=== PATIENT | male | born 1975 | race Caucasian/White ===

== ENCOUNTER 2020-02-29 12:40 | Emergency (ER) | payer OTHER ==
[~2020-02-29] VITALS: Ht 182.9 cm; Wt 106.8 kg
[2020-02-29] MEDS ORDERED: TYLENOL 325MG325 MG PO ×3 (14:01→15:37)
[2020-02-29] MEDS ORDERED: MOTRIN 400400 MG/TAB PO ×3 (14:01→15:37)
[2020-02-29 14:20] VITALS: BP 158/89; PULSE 78; TEMP 97.5
[2020-02-29] MEDS ORDERED: CRUTCHES MC ×2 (14:25→15:37)
== END 2020-02-29 14:55 | disposition home or self-care (01) ==
LOC: COL.ER 12:40
DX: S92.351A Displaced fracture of fifth metatarsal bone, right foot, initial encounter for closed fracture (principal); X50.1XXA Overexertion from prolonged static or awkward postures, initial encounter; Y92.39 Other specified sports and athletic area as the place of occurrence of the external cause

== ENCOUNTER → 2020-04-02 | Outpatient (CLI) | payer OTHER ==
[~2020-04-02] MED LIST: CRUTCHES MC; MOTRIN 400400 MG/TAB PO; TYLENOL 325MG325 MG PO
== END ==
LOC: MHCPAIN 08:35
DX: M48.12 Ankylosing hyperostosis [Forestier], cervical region (principal); M54.2 Cervicalgia; M25.511 Pain in right shoulder; M79.2 Neuralgia and neuritis, unspecified
CPT/HCPCS: G0463

== ENCOUNTER → 2020-04-04 | Outpatient (CLI) | payer OTHER | LOC: MHCPAIN 08:48 | DX: M47.812 Spondylosis without myelopathy or radiculopathy, cervical region (principal); M54.2 Cervicalgia ==

== ENCOUNTER → 2020-04-10 | Outpatient (CLI) | payer OTHER | LOC: MHCPAIN 07:58 | DX: M47.812 Spondylosis without myelopathy or radiculopathy, cervical region (principal); M54.2 Cervicalgia; M25.511 Pain in right shoulder; R51.9 Headache, unspecified; G89.29 Other chronic pain | CPT/HCPCS: G0463 ==

== ENCOUNTER → 2020-04-11 | Outpatient (CLI) | payer OTHER | LOC: MHCPAIN 12:32 | DX: M47.812 Spondylosis without myelopathy or radiculopathy, cervical region (principal); M54.2 Cervicalgia; R51.9 Headache, unspecified ==

== ENCOUNTER → 2020-07-25 | Outpatient (CLI) | payer OTHER | LOC: MHCPAIN 07:46 | DX: M47.812 Spondylosis without myelopathy or radiculopathy, cervical region (principal); M54.2 Cervicalgia; R51.9 Headache, unspecified | CPT/HCPCS: G0463; J1100; J2250; J3010 ==

== ENCOUNTER 2021-03-13 01:35 | Emergency (ER) | payer OTHER ==
[~2021-03-13] VITALS: Ht 182.9 cm; Wt 106.8 kg
[2021-03-13 01:41] VITALS: BP 162/98; PULSE 92; TEMP 98.4
[2021-03-13] MEDS ORDERED: MAGIC MOUTH PO (01:59)
== END 2021-03-13 02:15 | disposition home or self-care (01) ==
LOC: COL.ER 01:35
DX: J02.8 Acute pharyngitis due to other specified organisms (principal)